=== PATIENT | female | born 1990 | race Two or more races ===

== ENCOUNTER 2024-09-15 02:05 | Emergency (ER) | payer MEDICAID, OTHER ==
[~2024-09-15] VITALS: Ht 157.5 cm; Wt 66.7 kg
--- NOTE | 2024-09-15 02:52 | ED.PDOC ---
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 Patient states she is about 9 weeks , P:0. Patient began heavy vaginal bleeding about 2 hours ago, is currently experiencing abdominal pain described as sharp cramps, radiates to back, dizziness and generalized weakness. Upon triage, patient saturated pants of blood, was assisted to the bathroom. Denies any PMHx. Denies chest pain, yoel rtness of breath, nausea, vomiting, diarrhea, fevers. No other symptoms or modifying factors present at this time. Chief Complaint: Vaginal Bleed Time Seen by MD: 02:43 Reviewed Notes: Medications, Allergies Allergies: Coded Allergies: NO KNOWN ALLERGIES (Unverified , 09/15/24) Information Source: Patient Mode of Arrival: Ambulatory Timing: Hours Prehospital treatment: None Severity: Moderate Vaginal Discharge: None Vaginal Lesions: None Bleeding Quality: Bright Red Vaginal Mass: None Onset Of Mass/Bleeding: Spontaneous Sexual Activity: Last Consensual [place]: Unknown Control: None History of: Current Symptoms of Possible : Missed Period Associated Signs and Symptoms: Vaginal Bleeding, Abdominal Pain, Cramping Past Medical History PAST MEDICAL HISTORY: Denies Surgical History: Denies all surgeries MORTGAGE BROKER History: No Pertinent MORTGAGE BROKER History Family History Family History: Reviewed,noncontributory to illness, No family hx of Cancer, No family hx of DM, No family hx of Heart robin, No family hx of HTN, No family hx ofKidney robin, No family hx of Liver robin, No family hx of Lung robin, No family hx of Stroke Social History Smoker: Non-Smoker Alcohol: Denies ETOH Use Drugs: Denies Drug Use Lives In: Home Constitutional: reports: sweats, weakness; denies: chills, diaphoresis, fatigu e, fever, malaise, others EENTM: denies: blurred vision, double vision, ear bleeding, ear discharge, ear drainage, ear pain, ear ringing, eye pain, eye redness, hearing loss, mouth pain, mouth swelling, nasal discharge, nose bleeding, nose congestion, nose pain, photophobia, tearing, throat pain, throat swelling, voice changes, others Respiratory: denies: cough, hemoptysis, orthopnea, SOB at rest, shortness of breath, SOB with excertion, stridor, wheezing, others Cardiovascular: denies: chest pain, dizzy spells, diaphoresis, Dyspnea on exertion, edema, irregular heart beat, left arm pain, lightheadedness, palpitations, PND, syncope, others Gastrointestinal: reports: abdominal pain; denies: abdomen distended, blood streaked bowels, constipated, diarrhea, dysphagia, difficulty swallowing, hematemesis, melena, nausea, poor appetite, poor fluid intake, rectal bleeding, rectal pain, vomiting, others Genitourinary: reports: abnormal vagina bleeding, ; denies: burning, dyspareunia, dysuria, flank pain, frequency, hematuria, incontinence, pain, vagina discharge, urgency, others Neurological: reports: dizziness, weakness, others (lightheaded); denies: fainting, headache, left sided numbness, left sided weakness, numbness, paresthesia, pre-existing deficit, right sided numbness, right sided weakness, seizure, speech problems, tingling, tremors Musculoskeletal: reports: back pain; denies: gout, joint pain, joint swelling, muscle pain, muscle stiffness, neck pain, others Integumetry: denies: bruises, change in color, change in hair/nails, dryness, laceration, lesions, lumps, rash, wounds, others Allergic/Immunocompromised: denies: Difficulty Healing, Frequent Infections, Hives, Itching, others Hematologic/Lymphatic: denies: anemia, blood clots, easy bleeding, easy bruising, swollen glands, others Endocrine: denies: excessive hunger, excessive sweating, excessive thirst, excessive urination, flushing, intolerance to cold, intolerance to heat, unexplained weight gain, unexplained weight loss, others Psychiatric: denies: anxiety, bipolar disorder, depression, hopeless, panic disorder, schizophrenia, sleepless, suicidal, others All Other Systems: Reviewed and Negative Physical Exam General Appearance: Moderate Distress, Normal, Other (diaphoretic) HEENT: Normal ENT Inspection, Pharynx Normal, TMs Normal Neck: Full Range of Motion, Non-Tender, Normal, Normal Inspection Respiratory: Chest Non-Tender, Lungs Clear, No Accessory Muscle Use, No Respiratory Distress, Normal Breath Sounds Cardiovascular: No Edema, No JVD, No Murmur, No Gallop, Tachycardia, Other (hypotensive) Breast Exam: Deferred Gastrointestinal: No Organomegaly, Non Tender, No Pulsatile Mass, Normal Bowel Sounds, Soft Genitalia: Deferred Pelvic: Deferred Rectal: Deferred Extremities: No calf tenderness, Normal capillary refill, Normal inspection, Normal range of motion, Non-tender, No pedal edema Musculoskeletal : Apperance: Normal Neurologic: Alert, stationary engineer refrigeration II-XII nml as Tested, No Motor Deficits, Normal Affect, Normal Mood, No Sensory Deficits Cerebellar Function: Normal Reflexes: Normal Skin: Dry, Pallor, Warm Lymphatic: No Adenopathy Was a procedure done? Was a procedure done?: No X-Ray, Labs, Meds, VS Vital Signs Date Time Temp Pulse Resp B/P (MAP) Pulse Ox O2 Delivery O2 Flow Rate FiO2 09/15/24 07:42 98.2 81 18 104/67 (79) 97 98.2 09/15/24 07:33 Room Air* 0 21 09/15/24 06:13 80 18 97/65 09/15/24 05:47 83 16 103/83 09/15/24 05:46 83 16 103/83 (90) 99 09/15/24 02:55 88 18 96 Room Air* 0 21 09/15/24 02:55 98.8 88 18 100/66 (77) 96 98.8 09/15/24 02:30 98.8 91 20 88/48 (61) 100 98.8 Lab Test 09/15/24 03:25 09/15/24 02:57 Range/Units Urine Color Red H Yellow Urine Clarity Ex.turbid Clear Urine pH 6.5 5.0-9.0 Urine Specific [place] 1.016 1.001-1.035 Urine Protein 2+ H Negative Urine Ketones Negative Negative Urine Blood 3+ H Negative /uL Urine Nitrite Negative Negative Urine Bilirubin Negative Negative Urine Urobilinogen Normal Negative mg/dL Urine Leukocyte Esterase Trace Negative /uL Urine RBC 14253 0 - 4 /hpf Urine Microscopic WBC 3 0-5 /HPF Urine Squamous Epithelial Cells None seen <5 /hpf Urine Bacteria None seen None Seen /hpf Urine Glucose Normal Normal mg/dL White Blood Count 16.2 H 4.4-10.8 10^3/uL Red Blood Count 3.52 L 4.0-5.20 10^6/uL Hemoglobin 10.4 L 12.2-16.2 g/dL Hematocrit 32.0 L 36.0-46.0 % Mean Corpuscular Volume 90.9 80.0-100.0 fL Mean Corpuscular Hemoglobin 29.7 28.0-32.0 pg Mean Corpuscular Hemoglobin Concent 32.7 32.0-36.0 g/dL Red Cell Distribution Width 12.6 11.8-14.3 % Platelet Count 359 140-450 10^3/uL Mean Platelet Volume 6.5 L 6.9-10.8 fL Neutrophils (%) (Auto) 81.7 H 37.0-80.0 % Lymphocytes (%) (Auto) 11.6 10.0-50.0 % Monocytes (%) (Auto) 4.7 0.0-12.0 % Eosinophils (%) (Auto) 1.4 0.0-7.0 % Basophils (%) (Auto) 0.6 0.0-2.0 % Neutrophils # (Auto) 13.2 H 1.6-8.6 10 ^3/uL Lymphocytes # (Auto) 1.9 0.4-5.4 10 ^3/uL Monocytes # (Auto) 0.8 0-1.3 10 ^3/uL Eosinophils # (Auto) 0.2 0-0.8 10 ^3/uL Basophils # (Auto) 0.1 0-0.2 10 ^3/uL Nucleated Red Blood Cells 0.0 % Prothrombin Time 10.7 9.3-11.8 sec Prothrombin Time INR 1.01 0.9-1.15 Activated Partial Thromboplast Time 24.4 L 24.5-34.5 SEC Sodium Level 136 136-145 mmol/L Potassium Level 3.6 3.5-5.1 mmol/L Chloride Level 106 98-107 mmol/L Carbon Dioxide Level 23 20-31 mmol/L Anion Gap 7 5-15 Blood Urea Nitrogen 7 L 9-23 mg/dL Creatinine 0.58 0.550-1.02 mg/dL Glomerular Filtration Rate Calc 122 >90 mL/min BUN/Creatinine Ratio 12.1 10.0-20.0 Serum Glucose 140 H 74-106 mg/dL Lactic Acid Level 1.4 0.4-2.0 mmol/L Calcium Level 8.7 8.7-10.4 mg/dL Current Medications Medications (Trade) Dose Ordered Sig/Delbert Route Start Time Stop Time Status Last Admin Sodium Chloride 2,000 ml @ 1,000 mls/hr Q2H ONCE IV 09/15/24 03:00 09/15/24 04:59 DC 09/15/24 02:57 Sodium Chloride 1,000 ml @ 1,000 mls/hr Q1H ONCE IV 09/15/24 05:45 09/15/24 06:44 DC 09/15/24 05:47 Morphine Sulfate 4 mg ONCE ONCE IV 09/15/24 05:45 09/15/24 05:46 DC 09/15/24 05:47 Ondansetron HCl (Zofran) 4 mg ONCE ONCE IV 09/15/24 05:45 09/15/24 05:46 DC 09/15/24 05:47 X-Ray, Labs, Meds, VS Comment Addendum by Dr. Nagy: This 34-year-old female who is now weeks gestation presents secondary to copious amounts of vaginal bleeding. The time of my reassessment at approximately 8:00 a.m., the patient states the police he was largely resolved. Ultrasound did not show any obvious products of conception within the uterus. The patient was earlier in the . As such, she will be discharged and asked to do serial beta-hCGs and ultrasounds. Time of 1ST Reevaluation: 03:13 Reevaluation 1ST: Unchanged Time of 2ND Reevaluation: 08:44 Reevaluation 2ND: Improved Patient Education/Counseling: Diagnosis, Treatment, Prognosis Family Education/Counseling: No Family Present Departure 1 Departure Time of Disposition: 08:44 Impression: Primary Impression: Threatened Disposition: 01 HOME / SELF CARE / HOMELESS Condition: Good Discharged With: Self, Spouse Critical Care Note Critical Care Time?: No Stability Stability form required: No I personally scribed for DEIRDRE ALEGRIA MD ([email or web address]) on 09/15/24 at 02:52. Electronically submitted by Ami Lopez ([email or web address]). I personally scribed for DEIRDRE ALEGRIA MD ([email or web address]) on 09/15/24 at 03:01. El ectronically submitted by Ami Lopez ([email or web address]). DEIRDRE ALERGIA MD Sep 15, 2024 02:52 LAURENT NAGY MD Sep 15, 2024 08:44
[2024-09-15 02:55] VITALS: PULSE 88; RESP 18; O2SAT 96
[2024-09-15] MEDS: SODIUM CHLORIDE 0.9% 2,000 ML IV ONE (02:57)
[2024-09-15 03:17] LABS: Basophils # (auto) 0.1 10 ^3/uL (0-0.2); Basophils % (auto) 0.6 % (0.0-2.0); Eosinophils # (auto) 0.2 10 ^3/uL (0-0.8); Eosinophils % (auto) 1.4 % (0.0-7.0); Hemoglobin 10.4 g/dL (12.2-16.2); Lymphocytes # (auto) 1.9 10 ^3/uL (0.4-5.4); Lymphocytes % (auto) 11.6 % (10.0-50.0); Mean Corpuscular Hemoglobin 29.7 pg (28.0-32.0); Mean Corpuscular Hgb Conc. 32.7 g/dL (32.0-36.0); Mean Corpuscular Volume 90.9 fL (80.0-100.0); Monocytes # (auto) 0.8 10 ^3/uL (0-1.3); Monocytes % (auto) 4.7 % (0.0-12.0); Neutrophils # (auto) 13.2 10 ^3/uL (1.6-8.6); Neutrophils % (auto) 81.7 % (37.0-80.0); Platelet Count (auto) 359 10^3/uL (140-450); Red Blood Cells 3.52 10^6/uL (4.0-5.20); Red Cell Distribution Width 12.6 % (11.8-14.3); White Blood Cell 16.2 10^3/uL (4.4-10.8)
[2024-09-15 03:19] LABS: Chloride 106 mmol/L (98-107); Potassium 3.6 mmol/L (3.5-5.1); Sodium 136 mmol/L (136-145)
[2024-09-15 03:21] LABS: Anion Gap 7 (5-15); Carbon Dioxide 23 mmol/L (20-31)
[2024-09-15 03:26] LABS: BUN/Creatinine Ratio 12.1 (10.0-20.0)
[2024-09-15 03:27] LABS: Urine Bacteria None Seen /hpf (None Seen)
[2024-09-15 03:30] LABS: Blood Urea Nitrogen 7 mg/dL (9-23); Calcium 8.7 mg/dL (8.7-10.4); Glucose 140 mg/dL (74-106)
[2024-09-15 03:33] LABS: INR 1.01 (0.9-1.15); Partial Thromboplastin Time 24.4 SEC (24.5-34.5); Prothrombin Time 10.7 sec (9.3-11.8)
[2024-09-15 04:04] LABS: Urine Blood 3+ /uL (Negative); Urine Clarity Ex.Turbid (Clear); Urine Color Red (Yellow); Urine Protein, UAD 2+ (Negative); Urine Specific Gravity 1.016 (1.001-1.035); Urine Squamous Epithelial Cell None Seen /hpf (<5); Urine Urobilinogen Normal (Negative); Urine WBC 3 /HPF (0-5); Urine pH 6.5 (5.0-9.0)
[2024-09-15] MEDS: MORPHINE SULFATE 4 MG/ML SYR/VIAL ONE (05:46)
[2024-09-15] MEDS: ONDANSETRON HCL 4 MG/2 ML VIAL ONE (05:46)
[2024-09-15] MEDS: ONDANSETRON HCL 4 MG/2 ML VIAL IV ONE (05:47)
[2024-09-15] MEDS: SODIUM CHLORIDE 0.9% 1,000 ML IV ONE (05:47)
[2024-09-15] MEDS: MORPHINE SULFATE 4 MG/ML SYR/VIAL IV ONE (05:47)
[2024-09-15 07:42] VITALS: TEMP 98.2
--- NOTE | 2024-09-15 08:09 | DVH ---
OB ULTRASOUND <14 WEEKS: HISTORY: 9 weeks vag bleed TECHNIQUE: Multiple real-time grayscale sonographic images of the pelvis with duplex Doppler color f low, spectral and M-mode analysis. TRANSDUCERS: Transabdominal and transvaginal FINDINGS: The uterus measures 8.5 x 5.5 x 4.4 cm. Endometrium measures 14 mm. Echogenic material is visualized in the lower uterine segment which may represent blood products. The cervix not well visualized. Right ovary measures 2.9 x 1.5 x 2.3 cm with normal Doppler color flow Left ovary is not well visualized due to obscuration from bowel gas. No intrauterine is visualized. IMPRESSION: No intrauterine is visualized. Echogenic material in the lower uterine segment may represen t blood products. Thickened endometrium, without visualized gestational sac, pole or card iac activity. Differential considerations include early, normal intrauterine , an anembryoni c and spontaneous . Recommend correlation with follow-up beta hCG levels. Repeat ul trasound could be performed if clinically indicated.
[2024-09-15 09:14] VITALS: BP 100/60; PULSE 77; RESP 18; O2SAT 97
[2024-09-15] MEDS: RHO (D) IMMUNE GLOBULIN 300 MCG INJ IM ONE (09:45)
[2024-09-15] MEDS: cefTRIAXone 1GM/50ML D5W 50 ML IV ONE (09:47)
== END 2024-09-15 10:33 | disposition home or self-care (01) ==
LOC: ER 02:05
DX: O20.0 Threatened abortion (principal)
CPT/HCPCS: 36415; 76801; 76817; 80048; 81001; 83605; 84702; 85025; 85610; 85730; 86850; 86900; 86901; 96361; 96365; 96375; 99285; J0696; J2270; J2405; J7030